=== PATIENT | female | born 1930 | race Caucasian/White ===

== ENCOUNTER 2016-10-03 05:01 | Emergency (ER) | payer OTHER ==
--- NOTE | 2016-10-03 05:11 | CPEKG ---
Heart Rate: 61 RR Interval: 984 P-R Interval: 144 QRSD Interval: 90 QT Interval: 424 QTC Interval: 427 P [place]: 64 QRS [place]: 42 T Wave [place]: 230 EKG Severity - ABNORMAL ECG - EKG Impression: SINUS RHYTHM EKG Impression: PROBABLE LVH WITH SECONDARY REPOL ABNRM Electronically Signed By: Stephania Rebollar 03-Oct-2016 06:03:40
[2016-10-03 05:32] LABS: % IMMATURE GRANULYOCYTES 0.3 % (0.0-1.1); ABSOLUTE IMMATURE GRANULOCYTES 0.02 10^3/uL (0.00-0.10); ADD DIFF? NO; ADD MORPH? NO; ADD SCAN? NO; ATYPICAL LYMPHOCYTE FLAG 0 (0-99); FRAGMENT RBC FLAG 0 (0-99); HEMOGLOBIN 13.3 g/dL (12.6-16.3); LEFT SHIFT FLG 0 (0-99); LIPEMIA HEMOLYSIS FLAG 80 (0-99); MEAN CELL HEMOGLOBIN 32.3 pg (27.9-34.1); MEAN CELL HEMOGLOBIN CONCENTR. 33.3 g/dL (32.4-36.7); MEAN CELL VOLUME 97.1 fL (81.5-99.8); MEAN PLATELET VOLUME 9.8 fL (8.7-11.7); PLATELET CLUMPS FLAG 0 (0-99); PLATELET COUNT 344 10^3/uL (150-400); RED BLOOD CELL COUNT 4.12 10^6/uL (4.18-5.33); RED CELL DISTRIBUTION WIDTH 12.2 % (11.5-15.2)
[2016-10-03 05:40] LABS: ANION GAP 11 mEq/L (8-16); CALCIUM 9.7 mg/dL (8.5-10.4); CARBON DIOXIDE 27 mEq/l (22-31); CHLORIDE 103 mEq/L (97-110); CREATININE 0.8 mg/dL (0.6-1.0); GLOMERULAR FILTRATION RATE > 60; GLUCOSE 78 mg/dL (70-100); POTASSIUM 4.5 mEq/L (3.5-5.2); SODIUM 141 mEq/L (134-144)
[2016-10-03 05:49] LABS: TROPONIN I < 0.012 ng/mL (0-0.034)
[2016-10-03 06:11] LABS: ALANINE AMINOTRANSFERASE 32 IU/L (9-52); ALBUMIN 4.2 g/dL (3.5-5.0); ALKALINE PHOSPHATASE 85 IU/L (38-126); ASPARTATE AMINOTRANSFERASE 22 IU/L (14-46); BILIRUBIN,TOTAL 0.8 mg/dL (0.1-1.4); BILIRUBIN-CONJUGATED 0.3 mg/dL (0.0-0.5); BILIRUBIN-UNCONJUGATED 0.5 mg/dL (0.0-1.1); TOTAL PROTEIN 7.3 g/dL (6.3-8.2)
--- NOTE | 2016-10-03 06:21 | EDPHY ---
H & P Stated Complaint: Pt reported CP/SOB earlier but denies s/sx now Time Seen by Provider: 10/03/16 05:30 HPI/ROS: HPI The patient presents with chest pain which was present earlier today. She is brought in by ambulance because of the pain. However, paramedics say that her pain has subsided and now she is complaining of pain in her joints. She cannot describe the pain and is not sure how long it was present for. She says it just hurts. She denies any shortness of breath, nausea, vomiting, diaphoresis or dizziness. She denies having previous episodes of this pain. Upon review of old records, she did have a nuclear stress test performed in 2014 which was normal. REVIEW OF SYSTEMS Constitutional: No fever, no chills. Eyes: No discharge. ENT: No sore throat. Cardiovascular: No chest pain, no palpitations. Respiratory: No cough, no shortness of breath. Gastrointestinal: No abdominal pain, no vomiting. Genitourinary: No hematuria. Musculoskeletal: No back pain. Skin: No rashes. Neurological: No headache. PMHx: Hypertension, Alzheimer's dementia Soc Hx: From [facility] PHYSICAL General Appearance: Alert, no distress Eyes: Pupils equal and round no pallor or injection ENT, Mouth: Mucous membranes moist Respiratory: There are no retractions, lungs are clear to auscultation Cardiovascular: Regular rate and rhythm Gastrointestinal: Abdomen is soft and non-tender, no masses, bowel sounds normal Neurological: A&O, moves all extremities Skin: Warm and dry, no rashes Musculoskeletal: Neck is supple non tender Extremities: symmetrical, full range of motion Psychiatric: there is no agitation Source: Patient, EMS Exam Limitations: Physical impairment - Personal History Current Tetanus/Diphtheria Vaccine: Unsure Current Tetanus Diphtheria and Acellular Pertussis (TDAP): Unsure Tetanus Vaccine Date: unknown maybe 5yrs ago - Medical/Surgical History Hx Asthma: No Hx Chronic Respiratory Disease: No Hx Diabetes: No Hx Cardiac Disease: No Hx Renal Disease: No Hx Cirrhosis: No Hx Alcoholism: No Hx HIV/AIDS: No Hx Splenectomy or Spleen Trauma: No Other PMH: HTN, hx of falling, depressive episodes, hyperlipidemia, chronic left knee pain, alzheimers, - Social History Smoking Status: Never smoked Constitutional: Initial Vital Signs Temperature (C) 36.7 C 10/03/16 05:13 Heart Rate 62 10/03/16 05:13 Respiratory Rate 18 10/03/16 05:13 Blood Pressure 195/83 H 10/03/16 05:13 O2 Sat (%) 94 10/03/16 05:13 O2 Delivery Mode Room Air Allergies/Adverse Reactions: galantamine Allergy (Verified 10/03/16 05:17) Home Medications: Medication Instructions Recorded Lisinopril 5 mg PO DAILY #30 tablet 08/21/14 ASPIRIN 10/03/16 FLUoxetine 10/03/16 [place]-3 10/03/16 Oxycodone HCl 10/03/16 Sennosides/Docusate Sodium 10/03/16 [Senna-S Tablet] Tylenol 10/03/16 Medical Decision Making - Diagnostics EKG Interpretation: EKG: Complete interpretation has been separately recorded in the [email or web address] archive. Summary impression: T-wave inversions in V for through V6, unchanged from prior EKG. Imaging Results: Chest x-ray one view shows mild cardiomegaly, unchanged from prior chest x-ray, interpreted by me, radiology interpretation is pending. Differential Diagnosis: This is an 85-year-old female with hypertension and Alzheimer's dementia, presenting from [facility] for an episode of chest pain which is now resolved. Patient denies any acute complaints to me currently. She is well -appearing, though hypertensive on exam. Plan for basic evaluation with chest x-ray, EKG, basic labs. Labs and studies were checked and were unremarkable. The patient had no ongoing chest pain. She said that she felt uncomfortable, however was unable to articulate any actual pain. Her exam remains normal. The cause of this chest pain earlier is unclear. Given her normal laboratory testing today, I doubt serious pathology such as ACS. She would like to go home to her intermediate and I feel this is reasonable. Because her blood pressure was elevated, I have given her a dose of her lisinopril this morning. - Data Points Laboratory Results: Laboratory Results 10/03/16 05:00 10/03/16 05:00 10/03/16 10/03/16 05:00 05:00 WBC 6.92 10^3/uL 10^3/uL (3.80-9.50) RBC 4.12 10^6/uL L 10^6/uL (4.18-5.33) Hgb 13.3 g/dL g/dL (12.6-16.3) Hct 40.0 % % (38.0-47.0) MCV 97.1 fL fL (81.5-99.8) MCH 32.3 pg pg (27.9-34.1) MCHC 33.3 g/dL g/dL (32.4-36.7) RDW 12.2 % % (11.5-15.2) Plt Count 344 10^3/uL 10^3/uL (150-400) MPV 9.8 fL fL (8.7-11.7) Neut % (Auto) 56.0 % % (39.3-74.2) Lymph % (Auto) 29.2 % % (15.0-45.0) [place] % (Auto) 11.0 % % (4.5-13.0) Eos % (Auto) 2.6 % % (0.6-7.6) Baso % (Auto) 0.9 % % (0.3-1.7) Nucleat RBC Rel Count 0.0 % % (0.0-0.2) Absolute Neuts (auto) 3.88 10^3/uL 10^3/uL (1.70-6.50) Absolute Lymphs (auto) 2.02 10^3/uL 10^3/uL (1.00-3.00) Absolute Monos (auto) 0.76 10^3/uL 10^3/uL (0.30-0.80) Absolute Eos (auto) 0.18 10^3/uL 10^3/uL (0.03-0.40) Absolute Basos (auto) 0.06 10^3/uL 10^3/uL (0.02-0.10) Absolute Nucleated RBC 0.00 10^3/uL 10^3/uL (0-0.01) Immature Gran % 0.3 % % (0.0-1.1) Immature Gran # 0.02 10^3/uL 10^3/uL (0.00-0.10) Sodium 141 mEq/L mEq/L (134-144) Potassium 4.5 mEq/L mEq/L (3.5-5.2) Chloride 103 mEq/L mEq/L (97-110) Carbon Dioxide 27 mEq/l mEq/l (22-31) Anion Gap 11 mEq/L mEq/L (8-16) BUN 15 mg/dL mg/dL (7-23) Creatinine 0.8 mg/dL mg/dL (0.6-1.0) Estimated GFR > 60 Glucose 78 mg/dL mg/dL (70-100) Calcium 9.7 mg/dL mg/dL (8.5-10.4) Total Bilirubin 0.8 mg/dL mg/dL (0.1-1.4) Conjugated Bilirubin 0.3 mg/dL mg/dL (0.0-0.5) Unconjugated Bilirubin 0.5 mg/dL mg/dL (0.0-1.1) AST 22 IU/L IU/L (14-46) ALT 32 IU/L IU/L (9-52) Alkaline Phosphatase 85 IU/L IU/L (38-126) Troponin I < 0.012 ng/mL ng/mL (0-0.034) Total Protein 7.3 g/dL g/dL (6.3-8.2) Albumin 4.2 g/dL g/dL (3.5-5.0) Departure - Departure Disposition: Home, Routine, Self-Care Clinical Impression: Chest pain Qualifiers: Chest pain type: unspecified Qualified Code(s): R07.9 - Chest pain, unspecified HTN (hypertension) Qualifiers: Hypertension type: essential hypertension Qualified Code(s): I10 - Essential ( primary) hypertension Condition: Good Instructions: Chest Pain (ED) Referrals: ARMANDO CALDERÓN [Primary Care Provider] - As per Instructions
[2016-10-03 06:34] VITALS: PULSE 65; O2SAT 93
[2016-10-03] MEDS ORDERED: LISINOPRIL 10 MG TAB PO ONE (06:34)
[2016-10-03 08:02] VITALS: BP 151/91; RESP 14; TEMP 97.9
[2016-10-03] MEDS ORDERED: LISINOPRIL 10 MG TAB PO SCH (09:00)
== END 2016-10-03 07:53 | disposition home or self-care (01) ==
LOC: EDUNIT#
DX: R07.9 Chest pain, unspecified (principal); I10 Essential (primary) hypertension; Z79.82 Long term (current) use of aspirin

== ENCOUNTER 2017-05-26 19:32 | Inpatient (IN) | payer OTHER ==
--- NOTE | 2017-05-26 19:42 | CPEKG ---
Heart Rate: 78 RR Interval: 769 P-R Interval: 190 QRSD Interval: 90 QT Interval: 436 QTC Interval: 497 P [place]: 0 QRS [place]: 39 EKG Severity - ABNORMAL ECG - EKG Impression: SINUS RHYTHM EKG Impression: PROBABLE LVH WITH SECONDARY REPOL ABNRM EKG Impression: BORDERLINE PROLONGED QT INTERVAL Electronically Signed By: Maude Soto 27-May-2017 20:12:18
--- NOTE | 2017-05-26 19:48 | EDPHY ---
H & P Stated Complaint: Fall, Head lac. HPI/ROS: Chief complaint: Fall with head injury History of present illness: This is an 86-year-old female, currently residing at [facility], brought to the emergency department by EMS for evaluation of a fall resulting in a head injury. This was an unwitnessed fall. It is unclear if there was a preceding events such as seizure, syncope or just a mechanical fall. Patient appears to have struck the back of her head against a picture frame, breaking the glass and cutting the back of her head. Bleeding has been controlled. Patient does report some discomfort in this region. Patient denies remembering the event. She denies pain in other parts of the body. She is alert and oriented times 1-2, this is her baseline according to EMS who discussed this with the [facility] staff. Review of systems: A 10 point review of systems was obtained, is negative other than described above, however given patient's mental status it may not be entirely reliable - Personal History Current Tetanus/Diphtheria Vaccine: Unsure Current Tetanus Diphtheria and Acellular Pertussis (TDAP): Unsure Tetanus Vaccine Date: unknown maybe 5yrs ago - Medical/Surgical History Hx Asthma: No Hx Chronic Respiratory Disease: No Hx Diabetes: No Hx Cardiac Disease: No Hx Renal Disease: No Hx Cirrhosis: No Hx Alcoholism: No Hx HIV/AIDS: No Hx Splenectomy or Spleen Trauma: No Other PMH: HTN, hx of falling, depressive episodes, hyperlipidemia, chronic left knee pain, alzheimers, - Social History Smoking Status: Never smoked - Physical Exam Exam: General Appearance: Alert, nontoxic. Eyes: Pupils equal and round no pallor or injection. ENT, Mouth: Mucous membranes moist. Respiratory: There are no retractions, lungs are clear to auscultation. Cardiovascular: Regular rate and rhythm. Gastrointestinal: Abdomen is soft and non tender, no masses, bowel sounds normal. Neurological: Alert and oriented x1. Strength and sensation appears intact and symmetrical Skin: Warm and dry, no rashes. 2 cm laceration to the occipital scalp Musculoskeletal: Laceration to the head as noted above. No crepitus or bony deformity. No apparent tenderness, no crepitus, bony deformity or step-off on palpation of the spine. Chest wall intact palpation. Extremities are symmetrical, full range of motion. Psychiatric: Patient is alert and oriented x1. Constitutional: Initial Vital Signs Temperature (C) 36.7 C 05/26/17 19:36 Heart Rate 77 05/26/17 19:36 Respiratory Rate 18 05/26/17 19:36 Blood Pressure 199/89 H 05/26/17 19:36 O2 Sat (%) 97 05/26/17 19:36 O2 Delivery Mode Nasal Cannula O2 (L/minute) 2 Allergies/Adverse Reactions: galantamine Allergy (Verified 10/03/16 05:17) Home Medications: Medication Instructions Recorded Lisinopril 5 mg PO DAILY #30 tablet 08/21/14 ASPIRIN 10/03/16 FLUoxetine 10/03/16 [place]-3 10/03/16 Oxycodone HCl 10/03/16 Sennosides/Docusate Sodium 10/03/16 [Senna-S Tablet] Tylenol 10/03/16 Medical Decision Making - Diagnostics Imaging Results: Imaging Impressions Cervical Spine CT 05/26/17 19:41 Impression: 1. Occipital scalp hematoma. 2. No acute posttraumatic intracranial abnormality identified. 2. CT Cervical Spine Without Contrast, 8:09 PM History: Trauma. Unwitnessed fall. Neck pain. Technique: Multislice helical CT through the cervical spine without contrast from the skull base to T1. Soft tissue and bone evaluation is performed. Sagittal and coronal reconstructions are obtained and reviewed. Dose reduction techniques were utilized. Findings: No fracture is identified. Patient has a generous cervical neural canal. There is reversal of the normal cervical curvature centered at C4-C5. There are mild degenerative spondylolistheses between C2 and C5. There is degenerative disk space narrowing between C3 and C7 greatest between C5 and C7. No fracture or dislocation is identified. The relationship between skull base and C1 is normal. The C1-C2 articulation is normally aligned, but severely osteoarthritic and associated with calcification of the hypertrophic transverse ligament. The odontoid process is intact. Facet joints are normally aligned. There is facet osteoarthritis on the left between C2 and C5. The cervical thoracic junction is normally aligned. Soft tissue window evaluation does not show evidence of epidural or prevertebral hematoma. Impression: 1. Abnormal cervical curvature may indicate muscle spasm or be related to chronic multilevel degenerative change. 2. No fracture or dislocation identified. No definite acute posttraumatic abnormality identified. Results called to Remington Roque at 8:36 PM Final results are concordant with the initial interpretation. General information for patients regarding this examination can be found at [email or web address]. If you have questions or comments about this report, please contact me at (hospital) or [phone] (cell). Head CT 05/26/17 19:41 Impression: 1. Occipital scalp hematoma. 2. No acute posttraumatic intracranial abnormality identified. 2. CT Cervical Spine Without Contrast, 8:09 PM History: Trauma. Unwitnessed fall. Neck pain. Technique: Multislice helical CT through the cervical spine without contrast from the skull base to T1. Soft tissue and bone evaluation is performed. Sagittal and coronal reconstructions are obtained and reviewed. Dose reduction techniques were utilized. Findings: No fracture is identified. Patient has a generous cervical neural canal. There is reversal of the normal cervical curvature centered at C4-C5. There are mild degenerative spondylolistheses between C2 and C5. There is degenerative disk space narrowing between C3 and C7 greatest between C5 and C7. No fracture or dislocation is identified. The relationship between skull base and C1 is normal. The C1-C2 articulation is normally aligned, but severely osteoarthritic and associated with calcification of the hypertrophic transverse ligament. The odontoid process is intact. Facet joints are normally aligned. There is facet osteoarthritis on the left between C2 and C5. The cervical thoracic junction is normally aligned. Soft tissue window evaluation does not show evidence of epidural or prevertebral hematoma. Impression: 1. Abnormal cervical curvature may indicate muscle spasm or be related to chronic multilevel degenerative change. 2. No fracture or dislocation identified. No definite acute posttraumatic abnormality identified. Results called to Remington Roque at 8:36 PM Final results are concordant with the initial interpretation. General information for patients regarding this examination can be found at [email or web address] If you have questions or comments about this report, please contact me at [phone](hospital) or [phone] (cell). Chest/Thorax CTA 05/26/17 20:46 Impression: 1. Cardiomegaly without failure. 2. Innominate vein compression secondary to anatomy described above. 3. No large , central or upper lobe pulmonary emboli identified. Difficult to exclude lower lobe segmental pulmonary emboli due to the patient's inability to hold her breath. Nuclear medicine perfusion scanning might be considered in a patient such as this. 4. Moderate T9 compression of unknown acuity. Results called and discussed with KEYSHAWN Alan, at 05/26/2017 23:33 General information for patients regarding this examination can be found at [email or web address]. If you have questions or comments about this report, please contact me at [phone] (hospital) or [phone] (cell). Imaging: Discussed imaging studies w/ inbound call center agent Radiologist ED Course/Re-evaluation: Patient is discussed with my secondary supervising physician Dr. Maude Soto. Patient presents to the emergency department after sustaining a fall at [facility]. This was unwitnessed and it is not clear as to the events preceding the fall. According to EMS patient is at her baseline. They do state initially she had a pulse ox at 88% on room air but that quickly corrected itself. On my evaluation there is evidence of trauma to the head. Laceration is noted and repaired. CT scan of the head and neck are negative. Given unknown precipitating factors further evaluation is undertaken including CBC, chemistry, troponin, and D-dimer obtained. D-dimer is elevated. She did have a femur fracture that was repaired in March of this year. CTA of the chest is obtained, patient is having trouble cooperating with test, suboptimal test but no obvious PE is noted. T9 compression fracture is noted. This is new since a chest x-ray of 2015. I have consulted with [facility]. They do not have a record of a T9 compression fracture. Further urinalysis was obtained. It is concerning for infection. Patient is started on Rocephin IV. Given a fall resulting in head injury with unknown precipitating factor, possible new T9 compression fracture, urinary tract infection, elevated D-dimer with suboptimal CT scan obtained, patient will be admitted for further evaluation and care. [facility] is comfortable with patient being admitted here. Differential Diagnosis: Included but not limited to mechanical fall, syncope of multiple etiologies including vasovagal, orthostatics, secondary cardiac dysrhythmia or ACS, pulmonary embolism, seizure, infections of multiple etiologies - Data Points Laboratory Results: Laboratory Results 05/26/17 20:05 05/26/17 20:05 05/26/17 05/26/17 05/26/17 20:30 20:05 20:05 WBC RBC Hgb Hct MCV MCH MCHC RDW Plt Count MPV Neut % (Auto) Lymph % (Auto) [place] % (Auto) Eos % (Auto) Baso % (Auto) Nucleat RBC Rel Count Absolute Neuts (auto) Absolute Lymphs (auto) Absolute Monos (auto) Absolute Eos (auto) Absolute Basos (auto) Absolute Nucleated RBC Immature Gran % Immature Gran # D-Dimer 0.58 ug/mLFEU H ug/mLFEU (0.00-0.50) Sodium 138 mEq/L mEq/L (135-145) Potassium 4.4 mEq/L mEq/L (3.5-5.2) Chloride 101 mEq/L mEq/L (97-110) Carbon Dioxide 24 mEq/l mEq/l (22-31) Anion Gap 13 mEq/L mEq/L (8-16) BUN 15 mg/dL mg/dL (7-23) Creatinine 0.7 mg/dL mg/dL (0.6-1.0) Estimated GFR > 60 Glucose 116 mg/dL H mg/dL (70-100) Calcium 9.4 mg/dL mg/dL (8.5-10.4) Troponin I < 0.012 ng/mL ng/mL (0.000-0.034) Urine Color SENG Urine Appearance HAZY Urine pH 5.0 (5.0-7.5) Ur Specific [place] > 1.035 H (1.002-1.030) Urine Protein 1+ H (NEGATIVE) Urine Ketones TRACE H (NEGATIVE) Urine Blood NEGATIVE (NEGATIVE) Urine Nitrate NEGATIVE (NEGATIVE) Urine Bilirubin NEGATIVE (NEGATIVE) Urine Urobilinogen NEGATIVE EU EU (0.2-1.0) Ur Leukocyte Esterase 2+ H (NEGATIVE) Urine RBC 5-10 /hpf H /hpf (0-3) Urine WBC 50-182 /hpf H /hpf (0-3) Ur Epithelial Cells TRACE /lpf /lpf (NONE-1+) Urine Bacteria TRACE /hpf H /hpf (NONE SEEN) Hyaline Casts 1-5 /lpf /lpf (0-1) Urine Mucus 1+ /lpf /lpf (NONE-1+) Urine Glucose NEGATIVE (NEGATIVE) 05/26/17 20:05 WBC 5.84 10^3/uL 10^3/uL (3.80-9.50) RBC 3.89 10^6/uL L 10^6/uL (4.18-5.33) Hgb 12.4 g/dL L g/dL (12.6-16.3) Hct 38.0 % % (38.0-47.0) MCV 97.7 fL fL (81.5-99.8) MCH 31.9 pg pg (27.9-34.1) MCHC 32.6 g/dL g/dL (32.4-36.7) RDW 12.7 % % (11.5-15.2) Plt Count 294 10^3/uL 10^3/uL (150-400) MPV 10.1 fL fL (8.7-11.7) Neut % (Auto) 60.5 % % (39.3-74.2) Lymph % (Auto) 26.2 % % (15.0-45.0) [place] % (Auto) 8.9 % % (4.5-13.0) Eos % (Auto) 3.3 % % (0.6-7.6) Baso % (Auto) 0.9 % % (0.3-1.7) Nucleat RBC Rel Count 0.0 % % (0.0-0.2) Absolute Neuts (auto) 3.54 10^3/uL 10^3/uL (1.70-6.50) Absolute Lymphs (auto) 1.53 10^3/uL 10^3/uL (1.00-3.00) Absolute Monos (auto) 0.52 10^3/uL 10^3/uL (0.30-0.80) Absolute Eos (auto) 0.19 10^3/uL 10^3/uL (0.03-0.40) Absolute Basos (auto) 0.05 10^3/uL 10^3/uL (0.02-0.10) Absolute Nucleated RBC 0.00 10^3/uL 10^3/uL (0-0.01) Immature Gran % 0.2 % % (0.0-1.1) Immature Gran # 0.01 10^3/uL 10^3/uL (0.00-0.10) D-Dimer Sodium Potassium Chloride Carbon Dioxide Anion Gap BUN Creatinine Estimated GFR Glucose Calcium Troponin I Urine Color Urine Appearance Urine pH Ur Specific [place] Urine Protein Urine Ketones Urine Blood Urine Nitrate Urine Bilirubin Urine Urobilinogen Ur Leukocyte Esterase Urine RBC Urine WBC Ur Epithelial Cells Urine Bacteria Hyaline Casts Urine Mucus Urine Glucose Medications Given: Discontinued Medications Ceftriaxone Sodium/Dextrose (Rocephin 1 Gm (Premix)) 50 mls @ 100 mls/hr IV EDNOW ONE PRN Reason: Protocol Stop: 05/26/17 21:31 Last Admin: 05/26/17 21:27 Dose: 50 mls Lorazepam (Ativan Injection) 0.5 mg IVP EDNOW ONE Stop: 05/26/17 22:09 Last Admin: 05/26/17 22:29 Dose: 0.5 mg Departure - Departure Disposition: [facility] Acute Clinical Impression: Head injury Qualifiers: Encounter type: initial encounter Qualified Code(s): S09.90XA - Unspecified injury of head, initial encounter Scalp laceration Qualifiers: Encounter type: initial encounter Qualified Code(s): S01.01XA - Laceration without foreign body of scalp, initial encounter UTI (urinary tract infection) Qualifiers: Urinary tract infection type: site unspecified Hematuria presence: with hematuria Qualified Code(s): N39.0 - Urinary tract infection, site not specified ; R31.9 - Hematuria, unspecified; R31.9 - Hematuria, unspecified Wedge compression fracture of T9 vertebra Qualifiers: Encounter type: initial encounter Fracture type: closed Qualified Code(s): S22.070A - Wedge compression fracture of T9-T10 vertebra, initial encounter for closed fracture Condition: Fair
[2017-05-26 20:24] LABS: PLATELET COUNT 294 10^3/uL (150-400)
[2017-05-26] MEDS ORDERED: IOPAMIDOL (ISOVUE 370) 100 ML BTL IV ONE (20:50)
[2017-05-26] MEDS ORDERED: LORazepam 2 MG/ML INJ IVP ONE (22:08)
--- NOTE | 2017-05-26 22:31 | CPEKG ---
Heart Rate: 68 RR Interval: 882 P-R Interval: 132 QRSD Interval: 96 QT Interval: 404 QTC Interval: 430 P [place]: 53 QRS [place]: 24 T Wave [place]: 123 EKG Severity - ABNORMAL ECG - EKG Impression: SINUS RHYTHM EKG Impression: PROBABLE LVH WITH SECONDARY REPOL ABNRM Electronically Signed By: Stephania Rebollar 27-May-2017 07:32:18
[2017-05-26] MEDS ORDERED: ACETAMINOPHEN 325 MG TAB PO PRN (23:53)
[2017-05-26] MEDS ORDERED: ONDANSETRON 4 MG/2 ML VIAL IVP PRN (23:53)
[2017-05-26] MEDS ORDERED: ONDANSETRON DISINTEGRATING 4 MG TAB PO PRN (23:53)
--- NOTE | 2017-05-27 01:11 | PDGENHP ---
History and Physical - Chief Complaint Fall - History of Present Illness 86 yo F w/ dementia presents after a fall. Patient had an unwitnessed fall at her nursing facility where she experienced a laceration to her posterior scalp. Patient has no memory of the event on my evaluation. She states she feels ok and has no acute concerns. Per the [facility] staff, she is at her baseline of A& Ox1-2. She denies fever and dysuria to me. History Information - Allergies/Home Medication List Allergies/Adverse Reactions: galantamine Allergy (Verified 10/03/16 05:17) Home Medications: ASPIRIN 10/03/16 [Last Taken Unknown] FLUoxetine 10/03/16 [Last Taken Unknown] [place]-3 10/03/16 [Last Taken Unknown] Oxycodone HCl 10/03/16 [Last Taken Unknown] Sennosides/Docusate Sodium [Senna-S Tablet] 10/03/16 [Last Taken Unknown] Tylenol 10/03/16 [Last Taken Unknown] I have personally reviewed and updated: family history, medical history - Past Medical History dementia, hypertension - Surgical History Additional surgical history: Hip surgery - Family History Additional family history: Asked, unable to provide - Social History Smoking Status: Never smoked Review of Systems Review of Systems: ROS: 10pt was reviewed & negative except for what was stated in HPI & below Physical Exam Physical Exam: Temp Pulse Resp BP Pulse Ox 36.8 C 72 19 131/77 H 94 05/27/17 01:02 05/27/17 01:02 05/27/17 01:02 05/27/17 01:02 05/27/17 01:02 Constitutional: no apparent distress, not in pain Eyes: PERRL, anicteric sclera Ears, Nose, Mouth, Throat: moist mucous membranes, no oral mucosal ulcers Cardiovascular: regular rate and rhythym, systolic murmur Respiratory: no respiratory distress, no rales or rhonchi Gastrointestinal: normoactive bowel sounds, soft, non-tender abdomen Skin: warm, other (Laceration posterior scalp, s/p repair w/ 3 sutures) Neurologic: sensation intact bilaterally, other (A&Ox1) Psychiatric: interacting appropriately, not anxious Lab Data & Imaging Review 05/26/17 20:05 05/26/17 20:05 WBC 5.84 10^3/uL (3.80-9.50) 02/23/18 20:05 RBC 3.89 10^6/uL (4.18-5.33) L 05/26/17 20:05 Hgb 12.4 g/dL (12.6-16.3) L 05/26/17 20:05 Hct 38.0 % (38.0-47.0) 05/26/17 20:05 MCV 97.7 fL (81.5-99.8) 05/26/17 20: MCH 31.9 pg (27.9-34.1) 05/26/17 20: MCHC 32.6 g/dL (32.4-36.7) 05/26/17: RDW 12.7 % (11.5-15.2) 05/26/17: Plt Count 294 10^3/uL (150-400) 05/26/17 20: MPV 10.1 fL (8.7-11.7) 05/26/17 20:05 Neut % (Auto) 60.5 % (39.3-74.2) 05/26/17 20: Lymph % (Auto) 26.2 % (15.0-45.0) 05/26/17: [place] % (Auto) 8.9 % (4.5-13.0) 05/26/17 20:05 Eos % (Auto) 3.3 % (0.6-7.6) 05/26/17 20: Baso % (Auto) 0.9 % (0.3-1.7) 05/26/17: Nucleat RBC Rel Count 0.0 % (0.0-0.2) 05/26/17 20: Absolute Neuts (auto) 3.54 10^3/uL (1.70-6.50) 05/26/17 20:05 Absolute Lymphs (auto) 1.53 10^3/uL (1.00-3.00) 05/26/17 20:05 Absolute Monos (auto) 0.52 10^3/uL (0.30-0.80) 05/26/17 20:05 Absolute Eos (auto) 0.19 10^3/uL (0.03-0.40) 05/26/17 20:05 Absolute Basos (auto) 0.05 10^3/uL (0.02-0.10) 05/26/17 20:05 Absolute Nucleated RBC 0.00 10^3/uL (0-0.01) 05/26/17 20:05 Immature Gran % 0.2 % (0.0-1.1) 05/26/17 20:05 Immature Gran # 0.01 10^3/uL (0.00-0.10) 05/26/17 20:05 D-Dimer 0.58 ug/mLFEU (0.00-0.50) H 05/26/17 20:05 Sodium 138 mEq/L (135-145) 05/26/17 20:05 Potassium 4.4 mEq/L (3.5-5.2) 05/26/17 20:05 Chloride 101 mEq/L (97-110) 05/26/17 20:05 Carbon Dioxide 24 mEq/l (22-31) 05/26/17 20:05 Anion Gap 13 mEq/L (8-16) 05/26/17 20:05 BUN 15 mg/dL (7-23) 05/26/17 20:05 Creatinine 0.7 mg/dL (0.6-1.0) 05/26/17 20:05 Estimated GFR > 60 05/26/17 20:05 Glucose 116 mg/dL (70-100) H 05/26/17 20:05 Calcium 9.4 mg/dL (8.5-10.4) 05/26/17 20:05 Troponin I < 0.012 ng/mL (0.000-0.034) 05/26/17 20:05 Urine Color SENG 05/26/17 20:30 Urine Appearance HAZY 05/26/17 20:30 Urine pH 5.0 (5.0-7.5) 05/26/17 20:30 Ur Specific [place] > 1.035 (1.002-1.030) H 05/26/17 20:30 Urine Protein 1+ (NEGATIVE) H 05/26/17 20:30 Urine Ketones TRACE (NEGATIVE) H 05/26/17 20:30 Urine Blood NEGATIVE (NEGATIVE) 05/26/17 20:30 Urine Nitrate NEGATIVE (NEGATIVE) 05/26/17 20: Urine Bilirubin NEGATIVE (NEGATIVE) 05/26/17 20:30 Urine Urobilinogen NEGATIVE EU (0.2-1.0) 05/26/17 20:30 Ur Leukocyte Esterase 2+ (NEGATIVE) H 05/26/17 20:30 Urine RBC 5-10 /hpf (0-3) H 05/26/17 20:30 Urine WBC 50-182 /hpf (0-3) H 05/26/17 20:30 Ur Epithelial Cells TRACE /lpf (NONE-1+) 05/26/17 20:30 Urine Bacteria TRACE /hpf (NONE SEEN) H 05/26/17 20:30 Hyaline Casts 1-5 /lpf (0-1) 05/26/17 20:30 Urine Mucus 1+ /lpf (NONE-1+) 05/26/17 20:30 Urine Glucose NEGATIVE (NEGATIVE) 05/26/17 20:30 Imaging Review: Imaging Impressions Cervical Spine CT 05/26/17 19:41 Impression: 1. Occipital scalp hematoma. 2. No acute posttraumatic intracranial abnormality identified. 2. CT Cervical Spine Without Contrast, 8:09 PM History: Trauma. Unwitnessed fall. Neck pain. Technique: Multislice helical CT through the cervical spine without contrast from the skull base to T1. Soft tissue and bone evaluation is performed. Sagittal and coronal reconstructions are obtained and reviewed. Dose reduction techniques were utilized. Findings: No fracture is identified. Patient has a generous cervical neural canal. There is reversal of the normal cervical curvature centered at C4-C5. There are mild degenerative spondylolistheses between C2 and C5. There is degenerative disk space narrowing between C3 and C7 greatest between C5 and C7. No fracture or dislocation is identified. The relationship between skull base and C1 is normal. The C1-C2 articulation is normally aligned, but severely osteoarthritic and associated with calcification of the hypertrophic transverse ligament. The odontoid process is intact. Facet joints are normally aligned. There is facet osteoarthritis on the left between C2 and C5. The cervical thoracic junction is normally aligned. Soft tissue window evaluation does not show evidence of epidural or prevertebral hematoma. Impression: 1. Abnormal cervical curvature may indicate muscle spasm or be related to chronic multilevel degenerative change. 2. No fracture or dislocation identified. No definite acute posttraumatic abnormality identified. Results called to Remington Roque at 8:36 PM Final results are concordant with the initial interpretation. General information for patients regarding this examination can be found at [email or web address] If you have questions or comments about this report, please contact me at [phone](hospital) or [phone] (cell). Head CT 05/26/17 19:41 Impression: 1. Occipital scalp hematoma. 2. No acute posttraumatic intracranial abnormality identified. 2. CT Cervical Spine Without Contrast, 8:09 PM History: Trauma. Unwitnessed fall. Neck pain. Technique: Multislice helical CT through the cervical spine without contrast from the skull base to T1. Soft tissue and bone evaluation is performed. Sagittal and coronal reconstructions are obtained and reviewed. Dose reduction techniques were utilized. Findings: No fracture is identified. Patient has a generous cervical neural canal. There is reversal of the normal cervical curvature centered at C4-C5. There are mild degenerative spondylolistheses between C2 and C5. There is degenerative disk space narrowing between C3 and C7 greatest between C5 and C7. No fracture or dislocation is identified. The relationship between skull base and C1 is normal. The C1-C2 articulation is normally aligned, but severely osteoarthritic and associated with calcification of the hypertrophic transverse ligament. The odontoid process is intact. Facet joints are normally aligned. There is facet osteoarthritis on the left between C2 and C5. The cervical thoracic junction is normally aligned. Soft tissue window evaluation does not show evidence of epidural or prevertebral hematoma. Impression: 1. Abnormal cervical curvature may indicate muscle spasm or be related to chronic multilevel degenerative change. 2. No fracture or dislocation identified. No definite acute posttraumatic abnormality identified. Results called to Remington Roque at 8:36 PM Final results are concordant with the initial interpretation. General information for patients regarding this examination can be found at [email or web address] If you have questions or comments about this report, please contact me at [phone](hospital) or [phone] (cell). Chest/Thorax CTA 05/26/17 20:46 Impression: 1. Cardiomegaly without failure. 2. Innominate vein compression secondary to anatomy described above. 3. No large , central or upper lobe pulmonary emboli identified. Difficult to exclude lower lobe segmental pulmonary emboli due to the patient's inability to hold her breath. Nuclear medicine perfusion scanning might be considered in a patient such as this. 4. Moderate T9 compression of unknown acuity. Results called and discussed with KEYSHAWN Alan, at 05/26/2017 23:33 General information for patients regarding this examination can be found at [email or web address]. If you have questions or comments about this report, please contact me at (hospital) or [phone] (cell). Assessment & Plan Assessment: 86 yo F w/ dementia and HTN presents after a fall, found to have UTI and T9 compression fracture of unclear chronicity. Plan: 1. Fall - Unwitnessed fall, presumed mechanical. Patient suffered superficial laceration to posterior scalp, repaired in ED. Unclear if UTI was a contributing factor. - Check vitamin D level - Treat UTI as below - PT/OT evaluations 2. UTI - Convincingly infectious UA (2+ LE, WBC 50-182); patient denies symptoms but history unreliable noting advanced dementia. - Urine and blood cultures pending - CTX 1 g qD 3. T9 compression fracture - Moderate T9 compression of unknown acuity per radiology. ED spoke with Michael who state this was not present on previous imaging. - Trauma consult pending - Will check vitamin D - Consider Ca/Vit-D, bisphosphonate if in line with goals of care 4. HTN - On PATRICK as outpatient, needs med reconciliation. Diet - Regular Code - Full Ppx - SCDs Dispo - Admit under observation status
[2017-05-27 01:17] VITALS: RESP 16
[2017-05-27 06:05] LABS: PLATELET COUNT 268 10^3/uL (150-400)
--- NOTE | 2017-05-27 11:30 | HOSPPROG ---
Hospitalist Progress Note Assessment/Plan: # Fall - Unwitnessed fall, presumed mechanical. CT head showed occipital scalp hematoma, no ICH. CT c-spine neg. ?If UTI was a contributing factor. - PT/OT evaluations # UTI - UA with pyuria, tr bacteria. No Sx's, but dementia makes it difficult to determine - Urine and blood cultures pending - Cont Ceftriaxone while awaiting culture data # T9 compression fracture - Unclear acuity, per Rodriguez this was not present on previous imaging. - Trauma consult pending, will obtain MRI for further evaluation of chronicity - Vit D level pending - Cont outpt Calc, Vit D, consider bisphosphonate injection prior to arrival ( if hasn't received as outpt) # HTN - On PATRICK as outpatient, needs med reconciliation. Diet - Regular Code - Full Ppx - SCDs Dispo - change to inpt for ongoing management of UTI, fall, compression fracture Subjective: Pt feels fine. She is confused, demented, wants to go home. Denies pain. No fevers. Does not report urinary symptoms. No abdominal pain, N/V/D. Objective: Vital Signs Temp Pulse Resp BP Pulse Ox 36.8 C 82 16 143/67 H 92 05/27/17 11:13 05/27/17 11:13 05/27/17 11:13 05/27/17 11:13 05/27/17 11:13 Laboratory Results 05/27/17 05:58 05/27/17 05:58 05/26/17 05/27/17 05/28/17 05:59 05:59 05:59 Intake Total 1000 Output Total 100 Balance 1000 -100 - Physical Exam Constitutional: no apparent distress Eyes: PERRL Ears, Nose, Mouth, Throat: moist mucous membranes Cardiovascular: regular rate and rhythym Respiratory: no respiratory distress Gastrointestinal: normoactive bowel sounds, soft, non-tender abdomen Skin: warm Musculoskeletal: full muscle strength Psychiatric: poor insight, poor judgement, poor memory ICD10 Worksheet Patient Problems: Problems Problem Status Onset Head injury Acute Scalp laceration Acute UTI (urinary tract infection) Acute Wedge compression fracture of T9 vertebra Acute
[2017-05-27] MEDS ORDERED: MAGNESIUM HYDROXIDE 30 ML UDCUP PO PRN (11:32)
[2017-05-27] MEDS ORDERED: SENNOSIDES 1 TAB PO PRN ×2 (11:32→11:40)
[2017-05-27] MEDS ORDERED: LISINOPRIL 40 MG TAB PO SCH (11:45)
--- NOTE | 2017-05-27 12:19 | GCON ---
[f rep st] CONSULTATION HISTORY OF PRESENT ILLNESS: Patient is an 86-year-old female with moderate to severe dementia who presented last night to the ED after an unwitnessed fall and a small occiput scalp laceration. She underwent extensive imaging in the ED for suspected PE and was found to have a T9 compression fracture and Neurosurgery was called to evaluate the fracture. The patient was admitted to the floor and Neurosurgery saw this a.m. Much of the history is provided by chart review as the patient's own accounts are unreliable and she is confused about why she is in the hospital and not quite aware of where she is. She does complain of posterior scalp pain. She does not complain of thoracic back pain. She does have some minor pain in her mid glut. She does not complain of weakness or numbness in her lower extremities. She is not complaining of any difficulties with her bowel and her bladder this morning. She is quite pleasant and does not appear to have any acute complaints. PAST MEDICAL HISTORY: Dementia and hypertension. PAST SURGICAL HISTORY: Hip surgery as well as prior knee surgery. FAMILY HISTORY: The patient is unable to provide any pertinent family history. SOCIAL HISTORY: She lives in a [place] [facility] facility. REVIEW OF SYSTEMS: Patient complains of posterior scalp pain along the midline occiput along the midline occipital prominence. She has no chest pain, no complaint of shortness of breath. She has no complaints of weakness, numbness, or tingling in her extremities, bilateral upper or lower extremities. No complaints of saddle anesthesia. No complaints of shooting pain. NEUROLOGICAL PHYSICAL EXAMINATION: Patient is alert. She is oriented to self. She is not oriented to the time or place. Her speech is clear and fluent. Her extraocular movements are intact. Her pupils are equal and reactive to light. Her face is symmetrical. She has no facial droop. Cranial nerves 2 through 12 are grossly intact. Tongue protrusion is midline. Smile is symmetric. Palate rise is symmetric. Patient moves all extremities x4. She has 5/5 bilateral upper and lower extremity strength. Her sensation is intact to light touch. Her reflexes are normal. She has no clonus. Negative Ceballos's. She has no tenderness to palpation along her thoracic spine. HOME MEDICATIONS: Senna 1 tablet twice a day. Tylenol 1000 mg twice a day as needed. Vitamin D 5000 units supplement. Omeprazole 20 mg daily. Milk of magnesia 30 mL daily as needed. Lisinopril 40 mg daily. Xalatan ophthalmologic drops, 1 drop in the left eye each evening. Tramadol 25 mg 3 times a day for pain. Prozac 20 mg daily. Atorvastatin 20 mg nightly. Daily aspirin 81 mg. Calcium Tums supplement 3 times a day as needed. ALLERGIES: Patient does have an allergy to olanzapine. NEUROLOGIC ASSESSMENT AND PLAN: Patient is an 86-year-old female with moderate to severe dementia who sustained an unwitnessed fall yesterday resulting in an occiput scalp laceration as well as findings of a urinary tract infection upon admission to the hospital. She also has imaging findings of likely old T9 compression fracture and does not have any physical exam findings of acute pain. She does complain of some low back sacral pain midline that is likely unrelated. She has no deficits on physical exam. Neurosurgery does not feel that she needs any treatment, bracing or intervention for her compression fracture and it is likely not acute, and patient has no symptoms. Patient was discussed with Dr. Cayetano Mendez who will see and evaluate the patient later this morning. Neurosurgery will sign off at this time. Thank you for this consult. /[id number]/MODL MTDD
--- NOTE | 2017-05-27 13:01 | PDMN ---
Medical Necessity Medical necessity: C/M review: Patient meets INPT criteria under MCG M-300 Urinary tract infection: Acute and persistent urinary tract infection, D-dimer 0.58, urine leukocyte esterase 2+, urine WBC 50-182, urine and blood cultures pending, T9 compression fracture of unclear acuity, per Rodriguez not present on previous imaging, occipital hematoma on CT, requiring planned Trauma consult, MRI of thoracic spine, ongoing IV Ceftriaxone QD, acute inpt PT/OT, comorbid unwitnessed fall, presumed mechanical just prior to this admission, hypertension, dementia. MD anticipates > 2 MN LOS for ongoing med manny for eval and TX of above. Patient is Medicare Advantage which follows guidelines CMS puts forth.
--- NOTE | 2017-05-27 13:43 | ASMTCMCOM ---
CM Note CM Note Notes: Chart reviewed. 86 year old female admitted through ED s/p fall with laceration. She is being evaluated for a T -12 compression fracture. She has dementia and normally lives at [facility]. She will likely return there when medically stable to discharge. CM to follow. Date Signed: 05/27/2017 01:42 PM Electronically Signed By:Brooke Briones RN
[2017-05-27] MEDS: traMADol 50 MG TAB PO SCH ×2 (16:00→22:23)
[2017-05-27] MEDS: CALCIUM CARBONATE 500 MG CHEWABLE TAB PO SCH ×2 (16:00→22:22)
[2017-05-27] MEDS ORDERED: OLANZapine 2.5 MG TAB PO PRN (16:24)
[2017-05-27] MEDS ORDERED: ATORVASTATIN CALCIUM 20 MG TAB PO SCH (21:00)
[2017-05-27] MEDS ORDERED: cefTRIAXone 1 GM in STERILE WATER INJ 10 ML IV SCH (21:00)
[2017-05-27] MEDS ORDERED: LATANOPROST 0.005% 2.5 ML OPHT DROPS LEFTEYE SCH (21:00)
[2017-05-28] MEDS ORDERED: PANTOPRAZOLE SODIUM 40 MG TAB PO SCH (07:00)
[2017-05-28] MEDS ORDERED: NON-FORMULARY NEW DRUG (Omeprazole [Omeprazole] 20 MG) PO SCH (07:00)
[2017-05-28] MEDS: CALCIUM CARBONATE 500 MG CHEWABLE TAB PO SCH (08:42)
[2017-05-28] MEDS: traMADol 50 MG TAB PO SCH (08:43)
[2017-05-28] MEDS ORDERED: ASPIRIN 81 MG CHEWABLE TAB PO SCH (09:00)
[2017-05-28] MEDS ORDERED: LISINOPRIL 5 MG TAB PO SCH (09:00)
[2017-05-28] MEDS ORDERED: FLUoxetine 20 MG CAP PO SCH (09:00)
--- NOTE | 2017-05-28 10:47 | NEUSURGPN ---
Assessment/Plan: 86F, moderated to severe dementia with scalp lac, chronic T9 compression fx, and acute L2 compression fx seen on MRI yesterday. Asymptomatic with no deficits on exam -Could do Jewitt brace if patient had pain, but she appears asymptomatic, so no bracing necessary -Activity as tolerated for NS perspective -can f/u with NS on outpatient basis. LIBAN Mendez Subjective: mild buttock pain when asked but no complaints of pain and doing well sitting upright in chair. Objective: NAD Alert and oriented to self -apparent baseline per notes EOMI, PEARLA, no facial droop small occipital prominence scalp laceration MAEx4, 5/= BLE no TTP T/L Spine SILT - Physician Discussed Patient with : Andrea Neurosurgery Physical Exam - Vitals, I&O, Labs I and O 05/27/17 05/28/17 05/29/17 05:59 05:59 05:59 Intake Total 50 Output Total 1 200 Balance -1 -150 Intake: IV Intake (ml) 50 Output: Urine (ml) 1 200 Incontinence 1 Toilet 200 Other: Intake Quantity Yes Sufficient Number of Voids Incontinence 1 Toilet 1 1 Vital Signs Temp Pulse Resp BP Pulse Ox 37.0 C 75 16 183/86 H 90 L 05/28/17 07:34 05/28/17 07:34 05/28/17 07:34 05/28/17 07:36 05/28/17 07:34 ICD10 Worksheet Patient Problems: Problems Problem Status Onset Head injury Acute Scalp laceration Acute UTI (urinary tract infection) Acute Wedge compression fracture of T9 vertebra Acute
[2017-05-28 11:07] VITALS: BP 151/70; PULSE 76; TEMP 98.9; O2SAT 92
--- NOTE | 2017-05-28 11:34 | PDIAF ---
- Diagnosis Diagnosis: mechanical fall Code Status: Do Not Resuscitate - Medication Management Discharge Medications: Medications to Continue on Transfer Acetaminophen [Tylenol ES 500 mg (*)] 1,000 mg PO BID 05/27/17 [Last Taken 05/26] Aspirin [Aspirin 81mg (*)] 81 mg PO DAILY 05/27/17 [Last Taken 05/26/17] Atorvastatin Calcium [Lipitor 20 mg (*)] 20 mg PO HS 05/27/17 [Last Taken ] Calcium Carbonate [Tums 500MG (*)] 500 mg PO TID 05/27/17 [Last Taken 05/26/17] Cholecalciferol Vit D3 [Vitamin D3 (*)] 50,000 unit PO Q30D 05/27/17 [Last Taken 05/04/17] FLUoxetine [Prozac 20 MG (*)] 20 mg PO DAILY 05/27/17 [Last Taken 05/26/17] Latanoprost 0.005% [Xalatan 0.005% (*)] 1 drop LEFTEYE HS 05/27/17 [Last Taken 05/26/17] Lisinopril [Zestril 40 mg (*)] 40 mg PO DAILY PRN 05/27/17 [Last Taken 05/26/17] Magnesium Hydroxide [Milk of Magnesia] 30 ml PO DAILY PRN 05/27/17 [Last Taken 05/26/17] Omeprazole 20 mg PO DAILY@07 05/27/17 [Last Taken 05/26/17] Sennosides [Senna Lax] 8.6 mg PO BID PRN 05/27/17 [Last Taken 05/26/17] Discharge Medications: Refer to the Discharge Home Medication list for PRN reason. - Orders Services needed: Registered Nurse, Physical Therapy, Occupational Therapy Diet Recommendation: no restrictions on diet - Follow Up Care Current Providers and Referrals: Patient,NotPresent [Primary Care Provider] - As per Instructions
--- NOTE | 2017-05-28 12:43 | ASMTLACE ---
LACE Length of stay for Answers: 1 day current admission Acuity / Level of Answers: Yes Care: Did the patient have an inpatient admission? Comorbidities - select Answers: Dementia all that apply # of Emergency department Answers: 1-2 visits in the last 6 months Score: 8 Date Signed: 05/27/2017 01:39 PM Electronically Signed By:Brooke Briones RN
--- NOTE | 2017-05-28 12:55 | ASMTCMCOM ---
CM Note CM Note Notes: Per hospital medicine patient is at baseline medically and is able to return to [facility]. Faxed orders and medications to facility . Confirmed receipt. Demetris her son has been notified and will provide transportation back to [facility]. Nurse to call report. CM available should other needs arise. Date Signed: 05/28/2017 12:54 PM Electronically Signed By:Brooke Briones RN
--- NOTE | 2017-05-28 17:03 | GDS ---
[f rep st] DISCHARGE SUMMARY DISCHARGE DIAGNOSES: 1. Mechanical fall. 2. Occipital hematoma. 3. Chronic T9 compression fracture. 4. Subacute L2 compression fracture. 5. Dementia. 6. Hypertension. HISTORY: For details please see history and physical dated May 27, 2017. In brief, the patient is an 86-year-old female with a history of advanced dementia who resides in Memory Care Unit and suf fered a mechanical fall. She had a small laceration and hematoma to her posterior scalp. She is adm itted to the hospital for further evaluation. HOSPITAL COURSE: The patient admitted to the ortho unit. Trauma consult was obtained. She was eval uated by Neurosurgery. She had no evidence of intracranial hemorrhage and no changes in her neurolog ic status. A CT of her cervical spine was negative for fracture, dislocation. She had an elevated D -dimer and CTA was negative for pulmonary embolism. However, a moderate T9 compression deformity was noted. She underwent thoracic spine MRI which suggested more chronic T9 compression fracture, as we ll as mild T3 compression fracture. The L2 compression fractures appeared more acute to subacute, wi th mild spinal canal narrowing. However, she had no pain. I discussed the case with Neurosurgery. No interventions were recommended. Some consideration was given to urinary tract infection and she w as given 2 days of IV ceftriaxone. However, her urine culture is growing 5 or more colony types. He r blood cultures are negative. She has had no localizing infectious symptoms and antibiotics were di scontinued on the day of discharge. The patient was evaluated by therapy services and deemed safe to discharge back to her memory care unit. DISPOSITION: Patient is discharged to [facility] memory care in stable condition. FOLLOWUP: 1. Primary care. 2. Dr. Cayetano Mendez, Neurosurgery and she should have her stitches in the back of her head removed i n 7-10 days. DISCHARGE MEDICATIONS: Please see [facility] for completed outpatient medication list. She will praveena nue all outpatient medications as previously prescribed with the exception of tramadol, which is disc ontinued as this may increase her fall risk. /[id number]/MODL
== END 2017-05-28 13:32 | DRG 552 ==
LOC: EDUNIT# → INTOOBSV 23:53 → F3N 05-27 01:03 → OBSVTOIN 05-27 12:28
PROVIDERS: ADMIT Student in an Organized Health Care Education/Training Program; ATTEND Hospitalist
PROC: 0HQ0XZZ Repair Scalp Skin, External Approach (ICD-10-PCS; principal; 2017-05-27)
DX: S32.029A Unspecified fracture of second lumbar vertebra, initial encounter for closed fracture (principal); S22.070A Wedge compression fracture of T9-T10 vertebra, initial encounter for closed fracture; S22.030A Wedge compression fracture of third thoracic vertebra, initial encounter for closed fracture; S01.01XA Laceration without foreign body of scalp, initial encounter; W19.XXXA Unspecified fall, initial encounter; Y92.199 Unspecified place in other specified residential institution as the place of occurrence of the external cause; N39.0 Urinary tract infection, site not specified; F03.90 Unspecified dementia, unspecified severity, without behavioral disturbance, psychotic disturbance, mood disturbance, and anxiety
CPT/HCPCS: 96374; 97161-GP; G8978-GP-CJ; G8979-GP-CI; J0696; J2060; Q9967